=== PATIENT | male | born 1995 | race Caucasian/White ===

== ENCOUNTER 2018-07-16 06:06 | Day surgery (SDC) | payer OTHER ==
[2018-07-16] MEDS ORDERED: FENTAnyl 50 MCG/ML VIAL (08:38)
[2018-07-16] MEDS ORDERED: MIDAZOLAM 1 MG/ML 2 ML INJ ×2 (08:38)
== END 2018-07-16 11:00 | disposition home or self-care (01) ==
LOC: GIL 06:06
DX: D12.5 Benign neoplasm of sigmoid colon (principal); K64.8 Other hemorrhoids
CPT/HCPCS: 45385; 88305